=== PATIENT | female | born 1960 | race Caucasian/White ===

== ENCOUNTER 2017-12-17 06:49 | Emergency (ER) | payer MEDICAID ==
[~2017-12-17 06:49] MED LIST: ASPI-986 PO; IBUP-2028 PO
[2017-12-17] MEDS ORDERED: KETOROLAC 60MG/2ML VIAL IM ONE (08:00)
[2017-12-17] MEDS ORDERED: CYCLOBENZAPRINE 10MG TABLET PO ONE (08:00)
[2017-12-17] MEDS ORDERED: ACETAMINOPHEN 500MG TABLET PO ONE (09:45)
[2017-12-17 10:45] VITALS: BP 132/93
== END 2017-12-17 10:50 | disposition home or self-care (01) ==
LOC: ER 07:25
DX: M62.838 Other muscle spasm (principal); M54.12 Radiculopathy, cervical region; M25.511 Pain in right shoulder; I10 Essential (primary) hypertension; E66.9 Obesity, unspecified; R29.3 Abnormal posture; Z79.82 Long term (current) use of aspirin; W10.9XXA Fall (on) (from) unspecified stairs and steps, initial encounter; Y93.89 Activity, other specified; Y92.89 Other specified places as the place of occurrence of the external cause; Y99.8 Other external cause status
CPT/HCPCS: 73030; 96372; 99284; J1885; Z7610

== ENCOUNTER 2018-08-30 16:00 | Emergency (ER) | payer MEDICAID ==
[~2018-08-30] VITALS: Ht 152.4 cm; Wt 83.0 kg
[2018-08-30] MEDS ORDERED: IBUPROFEN 600MG TABLET PO STA (18:08)
[2018-08-30] MEDS ORDERED: CLONIDINE 0.1MG TABLET PO ONE (18:15)
[2018-08-30] MEDS ORDERED: CEFTRIAXONE SODIUM 250 MG/VIAL IM ONE (18:30)
[2018-08-30] MEDS ORDERED: AZITHROMYCIN 500 MG TABLET PO ONE (18:30)
[2018-08-30 18:34] LABS: BASOPHILS % 1.1 % (0.0-2.0); EOSINOPHILS % 6.4 % (0.0-5.0); HEMATOCRIT. 39.6 % (36.0-48.0); HEMOGLOBIN. 13.7 g/dL (12.0-16.0); LYMPHOCYTES % 32.4 % (20.0-50.0); MEAN CORPUSCULAR HEMOGLOBIN 29.2 pg (28.0-32.0); MEAN CORPUSCULAR VOLUME 84.5 fL (81.0-99.0); MEAN PLATELET VOLUME 8.5 fl (7.4-10.4); MONOCYTES % 6.7 % (2.0-8.0); NEUTROPHILS % 53.4 % (40.0-76.0); PLATELET 306 x1000/uL (130-400); RED BLOOD CELL COUNT 4.69 mill/uL (4.2-5.4); RED CELL DISTRIBUTION WIDTH 12.9 % (11.6-14.6)
[2018-08-30 18:37] LABS: CLARITY URINE CLOUDY (CLEAR); COLOR URINE YELLOW (YELLOW); KETONES URINE NEGATIVE (NEGATIVE); LEUKOCYTE ESTERASE URINE 1+ (NEGATIVE); NITRITE URINE NEGATIVE (NEGATIVE); OCCULT BLOOD URINE NEGATIVE (NEGATIVE); PH URINE 5.5 (4.5-8.0); PROTEIN URINE 1+ (NEGATIVE)
[2018-08-30 18:39] LABS: CHLORIDE 102 mEq/L (98-107)
[2018-08-30] MEDS ORDERED: POTASSIUM CHLORIDE 20MEQ TABLET SR PO ONE (20:00)
[2018-08-30 21:17] VITALS: BP 122/78
[2018-09-03 04:13] LABS: CHLAMYDIA TRACHOMATIS NAA Negative (Negative); NEISSERIA GONORRHOEAE NAA Negative (Negative)
== END 2018-08-30 21:19 | disposition home or self-care (01) ==
LOC: ER 16:00
DX: N76.0 Acute vaginitis (principal); B37.3 Candidiasis of vulva and vagina; N39.0 Urinary tract infection, site not specified; I10 Essential (primary) hypertension; Z79.82 Long term (current) use of aspirin
CPT/HCPCS: 36415; 80053; 81003; 81025; 83690; 85025; 87210; 87491; 87591; 96372; 99284; J0696

== ENCOUNTER 2022-01-08 15:54 | Inpatient (IN) | payer MEDICAID ==
[~2022-01-08] VITALS: Ht 162.6 cm; Wt 81.2 kg
[2022-01-08] MEDS ORDERED: SODIUM CHLORIDE 0.9% 1,000 ML IV ONE ×2 (16:15→17:45)
[2022-01-08] MEDS ORDERED: KETOROLAC 30MG/ML VIAL IV STA (16:15)
[2022-01-08] MEDS ORDERED: MORPHINE SULFATE 4 MG/ML CPJ (NOT FOR IM USE) IV STA (17:40)
[2022-01-08] MEDS ORDERED: ONDANSETRON HCL 4MG/2ML INJ IV STA (17:40)
[2022-01-08] MEDS ORDERED: PIPERACILLIN/TAZ 3.375G PREMIX 50 ML IV NR (17:42)
[2022-01-08] MEDS ORDERED: PIPERACILLIN/TAZOBACTAM 3.375GM/50ML PREMIX IV ONE (17:45)
[2022-01-08 17:46] LABS: BASOPHILS % 0.5 % (0.0-2.0); CHLORIDE 104 mEq/L (98-107); EOSINOPHILS % 0.3 % (0.0-5.0); HEMATOCRIT. 37.1 % (36.0-48.0); HEMOGLOBIN. 12.7 g/dL (12.0-16.0); LYMPHOCYTES % 15.8 % (20.0-50.0); MEAN CORPUSCULAR HEMOGLOBIN 28.1 pg (28.0-32.0); MEAN CORPUSCULAR VOLUME 82.1 fL (81.0-99.0); MEAN PLATELET VOLUME 8.2 fl (7.4-10.4); MONOCYTES % 5.6 % (2.0-8.0); NEUTROPHILS % 77.8 % (40.0-76.0); PLATELET 311 x1000/uL (130-400); RED BLOOD CELL COUNT 4.52 mill/uL (4.2-5.4); RED CELL DISTRIBUTION WIDTH 13.2 % (11.6-14.6)
[2022-01-08] MEDS ORDERED: KCL 10MEQ/50ML PREMIX 50 ML IV ONE (18:00)
[2022-01-08] MEDS ORDERED: BUPIVACAINE HCL 0.5% (5MG/ML) 50ML ONE (18:15)
[2022-01-08] MEDS ORDERED: SKIN ADHESIVE 0.7 GM EA TOP ONE (18:15)
[2022-01-08 18:21] LABS: CLARITY URINE CLEAR (CLEAR); COLOR URINE YELLOW (YELLOW); KETONES URINE NEGATIVE (NEGATIVE); LEUKOCYTE ESTERASE URINE 1+ (NEGATIVE); NITRITE URINE NEGATIVE (NEGATIVE); OCCULT BLOOD URINE NEGATIVE (NEGATIVE); PROTEIN URINE TRACE (NEGATIVE); SPECIFIC GRAVITY URINE 1.018 (1.005-1.030); UROBILINOGEN URINE 0.2 E.U./dL (0.2-1.0)
[2022-01-08] MEDS ORDERED: ROCURONIUM BROMIDE 10MG/ML VIAL 5ML IV ONE (18:34)
[2022-01-08] MEDS ORDERED: PROPOFOL 200MG/20ML VIAL IV ONE (18:34)
[2022-01-08] MEDS ORDERED: HYDROMORPHONE HCL/PF 2MG/ML CPJ ONE (18:35)
[2022-01-08] MEDS ORDERED: DEXT 5%/0.45% NACL KCL 20MEQ/L 1,000 ML IV SCH (18:45)
[2022-01-08] MEDS ORDERED: MORPHINE SULFATE 2 MG/ML CPJ (NOT FOR IM USE) IV PRN (18:45)
[2022-01-08] MEDS ORDERED: MORPHINE SULFATE 4 MG/ML CPJ (NOT FOR IM USE) IV PRN (18:45)
[2022-01-08] MEDS ORDERED: NALOXONE HCL 0.4MG/ML VIAL IV PRN (18:45)
[2022-01-08] MEDS ORDERED: HYDROCODONE/ACETAMINOPHEN 5/325MG TABLET PO PRN ×2 (18:45)
[2022-01-08] MEDS ORDERED: ONDANSETRON HCL 4MG/2ML INJ IV PRN ×3 (18:45→23:00)
[2022-01-08] MEDS ORDERED: EPHEDRINE SULFATE 50MG/ML VIAL ONE (19:16)
[2022-01-08] MEDS ORDERED: DEXAMETHASONE 4MG/ML 1ML VIAL ONE (19:16)
[2022-01-08] MEDS ORDERED: CEFAZOLIN SODIUM 1000MG/VIAL ONE (19:16)
[2022-01-08] MEDS ORDERED: NEOSTIGMINE METHYLSULFATE 1MG/ML 10 ML VIAL ONE (19:37)
[2022-01-08] MEDS ORDERED: GLYCOPYRROLATE 0.2 MG/ML 2ML VIAL ONE (19:37)
[2022-01-08] MEDS ORDERED: MEPERIDINE HCL/PF 25MG/ML CPJ IV PRN (20:00)
[2022-01-08] MEDS ORDERED: HYDROMORPHONE HCL/PF 2MG/ML CPJ IV PRN (20:00)
[2022-01-08] MEDS ORDERED: LABETALOL 5MG/ML SYR 20 MG/4 ML SYRINGE IV PRN (20:00)
[2022-01-08] MEDS ORDERED: GUAIFENESIN 200MG/10ML SUGAR FREE UDC PO PRN (23:00)
[2022-01-08] MEDS ORDERED: ZOLPIDEM TARTRATE 5MG TABLET PO PRN (23:00)
[2022-01-08] MEDS ORDERED: NITROGLYCERIN 0.4MG TABLET SL SL PRN (23:00)
[2022-01-08] MEDS ORDERED: KETOROLAC 15MG/ML VIAL IV PRN (23:00)
[2022-01-08] MEDS ORDERED: CLONIDINE 0.1MG TABLET PO PRN (23:00)
[2022-01-08] MEDS ORDERED: DOCUSATE SODIUM 100MG CAPSULE PO PRN (23:00)
[2022-01-08] MEDS ORDERED: ACETAMINOPHEN 325MG TABLET PO PRN ×2 (23:00)
[2022-01-08] MEDS ORDERED: IPRATROPIUM/ALBUTEROL 0.5-3(2.5)MG/3ML NEB NEB PRN (23:00)
[2022-01-08] MEDS ORDERED: MAGNESIUM/ALUMINUM HYDROXIDE/SIMETHICONE 30ML UDC PO PRN (23:00)
[2022-01-08] MEDS ORDERED: ENOXAPARIN 40MG/0.4ML SYR SUBCUT SCH (23:00)
[2022-01-09 00:46] LABS: TOTAL IRON BINDING CAPACITY 361 ug/dL (250-450)
[2022-01-09 00:57] VITALS: BP 116/68
[2022-01-09 01:12] LABS: VITAMIN B12 SERUM 308 pg/mL (211-911)
[2022-01-09 01:16] LABS: FOLIC ACID (FOLATE) SERUM > 20.00 ng/mL (>5.38)
[2022-01-09] MEDS ORDERED: METF-873 PO (01:39)
[2022-01-09] MEDS: SODIUM CHLORIDE 0.9% INJ 3ML FLUSH IVF SCH ×3 (05:24→14:16)
[2022-01-09 07:17] LABS: BASOPHILS % 0.2 % (0.0-2.0); HEMATOCRIT. 33.6 % (36.0-48.0); HEMOGLOBIN. 11.7 g/dL (12.0-16.0); LYMPHOCYTES % 10.3 % (20.0-50.0); MEAN CORPUSCULAR HEMOGLOBIN 29.2 pg (28.0-32.0); MEAN PLATELET VOLUME 8.3 fl (7.4-10.4); MONOCYTES % 3.6 % (2.0-8.0); NEUTROPHILS % 85.9 % (40.0-76.0); PLATELET 284 x1000/uL (130-400); RED CELL DISTRIBUTION WIDTH 13.5 % (11.6-14.6)
[2022-01-09 07:35] LABS: CHLORIDE 106 mEq/L (98-107); PHOSPHORUS 3.3 mg/dL (2.5-4.9)
[2022-01-09] MEDS ORDERED: PANTOPRAZOLE SODIUM 40 MG/VIAL IV SCH (09:00)
[2022-01-09] MEDS: DEXT 5%/0.45% NACL KCL 20MEQ/L 1,000 ML IV SCH ×2 (09:20)
[2022-01-09 12:00] VITALS: BP 117/65
[2022-01-09 14:42] VITALS: BP 117/65
[2022-01-09 16:00] VITALS: BP 105/53
== END 2022-01-09 19:05 | disposition home or self-care (01) | DRG 234 ==
LOC: ER 15:54 → 6EST 18:03 → EDBEDREQTM 18:16 → ER 18:30 → ENRESERV 21:45 → CANBEDREQ 22:01
PROVIDERS: ADMIT Internal Medicine; ATTEND Internal Medicine
PROC: 0DTJ4ZZ Resection of Appendix, Percutaneous Endoscopic Approach (ICD-10-PCS; principal; 2022-01-08)
DX: K35.80 Unspecified acute appendicitis (principal); E11.9 Type 2 diabetes mellitus without complications; E66.01 Morbid (severe) obesity due to excess calories; M19.90 Unspecified osteoarthritis, unspecified site; E87.6 Hypokalemia; I10 Essential (primary) hypertension; Z20.822 Contact with and (suspected) exposure to COVID-19; Z79.4 Long term (current) use of insulin; Z68.30 Body mass index [BMI] 30.0-30.9, adult; Z98.891 History of uterine scar from previous surgery
CPT/HCPCS: 36415; 71045; 74176; 76705; 80053; 81003; 82607; 82746; 83540; 83550; 83735; 84100; 85025; 87426; 88304; 93005; 99285; C9113; J0690; J1100; J1170; J1650; J1885; J2704; J2710; J3480; J3490; J7030

== ENCOUNTER 2022-01-16 12:26 | Emergency (ER) | payer MEDICAID ==
[~2022-01-16] VITALS: Ht 157.5 cm; Wt 74.0 kg
[~2022-01-16 12:26] MED LIST changes: +METF-873 PO
[2022-01-16] MEDS ORDERED: ACETAMINOPHEN WITH CODEINE 300/30MG TABLET PO STA (13:41)
[2022-01-16] MEDS ORDERED: T3 PO (15:37)
[2022-01-16 16:04] VITALS: BP 122/76
== END 2022-01-16 15:32 | disposition home or self-care (01) ==
LOC: ER 12:26
DX: R10.32 Left lower quadrant pain (principal); E11.9 Type 2 diabetes mellitus without complications; I10 Essential (primary) hypertension; Z90.49 Acquired absence of other specified parts of digestive tract; Z48.00 Encounter for change or removal of nonsurgical wound dressing
CPT/HCPCS: 99283

== ENCOUNTER 2022-11-12 19:20 | Emergency (ER) | payer MEDICAID ==
[~2022-11-12] VITALS: Ht 152.4 cm; Wt 71.0 kg
[~2022-11-12 19:20] MED LIST changes: +T3 PO
[2022-11-12] MEDS ORDERED: ACETAMINOPHEN 325MG TABLET PO STA (20:48)
[2022-11-12] MEDS ORDERED: SODIUM CHLORIDE 0.9% 1,000 ML IV ONE (21:00)
[2022-11-12 23:13] LABS: BASOPHILS % 0.7 % (0.0-2.0); EOSINOPHILS % 0.6 % (0.0-5.0); HEMATOCRIT. 38.7 % (36.0-48.0); LYMPHOCYTES % 14.6 % (20.0-50.0); MEAN CORPUSCULAR HEMOGLOBIN 28.4 pg (28.0-32.0); MEAN CORPUSCULAR VOLUME 84.4 fL (81.0-99.0); MONOCYTES % 7.7 % (2.0-8.0); NEUTROPHILS % 76.4 % (40.0-76.0); PLATELET 297 x1000/uL (130-400); RED BLOOD CELL COUNT 4.58 mill/uL (4.2-5.4); RED CELL DISTRIBUTION WIDTH 13.5 % (11.6-14.6)
[2022-11-12 23:24] LABS: CHLORIDE 103 mEq/L (98-107)
[2022-11-13] MEDS ORDERED: SODIUM CHLORIDE 0.9% 1,000 ML IV ONE (01:00)
[2022-11-13] MEDS ORDERED: ACETAMINOPHEN 325MG TABLET PO NR (01:00)
[2022-11-13 04:00] VITALS: BP 130/74
[2022-11-13 04:34] LABS: CLARITY URINE CLEAR (CLEAR); COLOR URINE YELLOW (YELLOW); KETONES URINE NEGATIVE (NEGATIVE); LEUKOCYTE ESTERASE URINE NEGATIVE (NEGATIVE); NITRITE URINE NEGATIVE (NEGATIVE); OCCULT BLOOD URINE NEGATIVE (NEGATIVE); PH URINE 5.5 (4.5-8.0); PROTEIN URINE NEGATIVE (NEGATIVE); SPECIFIC GRAVITY URINE 1.037 (1.005-1.030); UROBILINOGEN URINE 0.2 E.U./dL (0.2-1.0)
== END 2022-11-13 07:18 | disposition home or self-care (01) ==
LOC: ER 19:20
DX: B34.9 Viral infection, unspecified (principal); R00.0 Tachycardia, unspecified; D25.9 Leiomyoma of uterus, unspecified; R94.31 Abnormal electrocardiogram [ECG] [EKG]; K76.0 Fatty (change of) liver, not elsewhere classified; Z91.81 History of falling; Z20.822 Contact with and (suspected) exposure to COVID-19; I10 Essential (primary) hypertension; E11.9 Type 2 diabetes mellitus without complications; Z79.899 Other long term (current) drug therapy; Z79.82 Long term (current) use of aspirin; Z79.84 Long term (current) use of oral hypoglycemic drugs
CPT/HCPCS: 36415; 70450; 71045; 74176; 80053; 81003; 83605; 84145; 85025; 87040; 87426; 87804; 93005; 96360; 96361; 99285; C9803; J7030

== ENCOUNTER 2023-10-29 09:02 | Emergency (ER) | payer MEDICAID ==
[~2023-10-29] VITALS: Ht 157.5 cm; Wt 73.0 kg
[2023-10-29 09:06] VITALS: O2SAT 100
[2023-10-29 12:27] LABS: BASOPHILS % 0.5 % (0.0-2.0); EOSINOPHILS % 1.2 % (0.0-5.0); HEMOGLOBIN. 14.4 g/dL (12.0-16.0); LYMPHOCYTES % 15.4 % (20.0-50.0); MEAN CORPUSCULAR HEMOGLOBIN 28.2 pg (28.0-32.0); MEAN CORPUSCULAR HGB CONC 33.5 g/dL (31.0-37.0); NEUTROPHILS % 75.9 % (40.0-76.0); PLATELET 323 x1000/uL (130-400); RED BLOOD CELL COUNT 5.12 mill/uL (4.2-5.4); RED CELL DISTRIBUTION WIDTH 13.6 % (11.6-14.6)
[2023-10-29 12:38] LABS: INR 0.9; PROTHROMBIN TIME 10.2 sec (9.6-11.0)
[2023-10-29 12:43] LABS: ALANINE AMINOTRANSFERASE 15 IU/L (10-49); ALBUMIN 4.5 g/dL (3.2-4.8); ASPARTATE AMINOTRANSFERASE 14 IU/L (<34); BILIRUBIN TOTAL 0.4 mg/dL (0.1-1.0); CARBON DIOXIDE 23 mEq/L (21-32); CHLORIDE 111 mEq/L (98-107); CREATININE 0.5 mg/dL (0.6-1.0); GLUCOSE 132 mg/dL (70-105); POTASSIUM 3.3 mEq/L (3.5-5.1); PROTEIN TOTAL 8.4 g/dL (6.0-8.3); SODIUM 142 mEq/L (136-145); UREA NITROGEN BLOOD 16 mg/dL (9-23)
[2023-10-29] MEDS ORDERED: FAMO20TA8 MT (13:49)
[2023-10-29] MEDS ORDERED: ONDA4TAB11 PO (13:50)
[2023-10-29 14:13] VITALS: BP 134/87; PULSE 86; RESP 16; TEMP 98.9
== END 2023-10-29 14:09 | disposition home or self-care (01) ==
LOC: ER 09:02
DX: R10.84 Generalized abdominal pain (principal); E11.9 Type 2 diabetes mellitus without complications; I10 Essential (primary) hypertension; Z79.899 Other long term (current) drug therapy
CPT/HCPCS: 80053; 83690; 85025; 85610; 36415; 93005; 99284; Z7610 ×3